=== PATIENT | male | born 1970 | race African-American/Black ===

== ENCOUNTER 2021-01-18 10:21 | Emergency (ER) | payer BC ==
[~2021-01-18] VITALS: Ht 185.4 cm; Wt 86.2 kg
[2021-01-18] MEDS ORDERED: LASIX20 MG PO (10:51)
== END 2021-01-18 16:36 | disposition home or self-care (01) ==
LOC: ER 10:21
DX: K29.60 Other gastritis without bleeding (principal); E87.5 Hyperkalemia; I12.0 Hypertensive chronic kidney disease with stage 5 chronic kidney disease or end stage renal disease; N18.6 End stage renal disease; Z99.2 Dependence on renal dialysis